=== PATIENT | female | born 1955 | race Two or more races ===

== ENCOUNTER 2020-01-05 07:48 | Day surgery (SDC) | payer OTHER | END 2020-01-05 13:35 | disposition home or self-care (01) | LOC: AMB-ENDOS 07:48 | PROVIDERS: ATTEND Surgery | DX: K62.89 Other specified diseases of anus and rectum (principal); K57.32 Diverticulitis of large intestine without perforation or abscess without bleeding; K64.4 Residual hemorrhoidal skin tags; Z20.828 Contact with and (suspected) exposure to other viral communicable diseases ==